=== PATIENT | male | born 1965 | race Caucasian/White ===

== ENCOUNTER → 2017-09-10 | Outpatient (CLI) | payer BC ==
--- NOTE | 2017-09-10 14:26 | CT ---
EXAMINATION TYPE: CT soft tissue neck w con DATE OF EXAM: 09/10/2017 1:34 PM COMPARISON: NONE HISTORY: Hoarseness post OP Ankle surgery CT DLP: 560.4 mGycm Automated exposure control for dose reduction was used. CONTRAST: CT scan of the neck is performed following with IV Contrast, patient injected with 96 mL of Isovue 30 0. Axial images are obtained, coronal and sagittal reformatted images are reviewed. FINDINGS: Airway: Airway is patent. Lung apices are unremarkable. At the level of the arytenoid cartilages ther e is a mild asymmetric appearance to the airway axial image 53 possibly due to patient positioning. Parotid/submandibular glands: No gross abnormality seen. Carotid/Vascular Structures: Four super aortic branch vessels are present. Osseous Structures: Mild degenerative disc disease visualized in the spine Other: Thyroid shows normal density and there is no evident adenopathy IMPRESSION: Mild asymmetry at the level of the arytenoid cartilages as described may be positional, consider direct visualization, follow-up as indicated
== END | disposition home or self-care (01) ==
LOC: RADCTMAIN 13:10
PROVIDERS: ATTEND Otolaryngology
DX: M94.8X8 Other specified disorders of cartilage, other site (principal); J38.00 Paralysis of vocal cords and larynx, unspecified
CPT/HCPCS: 70491; Q9967

== ENCOUNTER → 2017-09-26 | Day surgery (SDC) | payer BC ==
[2017-09-20 14:13] VITALS: BMI 25.0
[~2017-09-26] MED LIST: DEXAMETHASONE SOD PHOSPHATE 10 MG/ML 1 ML VIAL IV ONE; DEXAMETHASONE SOD PHOSPHATE 4 MG/ML 1 ML VIAL IV ONE; FAMOTIDINE 20 MG/2 ML VIAL IV ONE; LACTATED RINGERS 1,000 ML IV SCH; LIDOCAINE 1% 20 ML VIAL (10MG/ML) FOR IV START IV ONE; LIDOCAINE 1% INJ 10MG/ML (20 ML MDV) ONE; MIDAZOLAM 2 MG/2 ML VIAL ONE; MORPHINE SULFATE 4 MG/ML SYRINGE IV PRN; ONDANSETRON 4 MG/2 ML VIAL IVP ONE; ONDANSETRON ODT 4 MG TAB PO ONE; PROPOFOL 10 MG/ML 20 ML VIAL IV ONE; SUCCINYLCHOLINE CHLORIDE 100 MG/5 ML SYR IV ONE; fentaNYL (PF) 50 MCG/ML 2 ML AMP ONE
--- NOTE | 2017-09-26 09:26 | P.OP ---
Date of Procedure: 09/26/17 Preoperative Diagnosis: Right vocal cord lesion Postoperative Diagnosis: Same Procedure(s) Performed: Microlaryngoscopy with excision right vocal cord lesion Anesthesia: SAIMAA Surgeon: Delmar Tucker Estimated Blood Loss (ml): 1 Pathology: other (Right vocal cord lesion) Condition: stable Disposition: PACU Indications for Procedure: This is a 52-year-old white male whose had difficulties with hoarseness. 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 This was actually on the inferior surface. There was also some mild diffuse edema of the right true vocal cord Description of Procedure: The patient was brought in the operative suite and placed in a supine position. The patient underwent induction of general anesthesia with oral endotracheal intubation without difficulty this was a #5 endotracheal tube. The patient was prepped and draped in usual aseptic fashion. A tooth guard was then placed. Laryngoscopy was performed systematic evaluation of the base of tongue vallecula both piriform sinuses post cricoid area and endolarynx. With the larynx in good visualization the laryngoscope was placed in suspension and the Ze[employer] microscope was brought into position for further evaluation of the vocal cords. There was a small lesion on the inferior aspect right true vocal cord which was smooth and rounded. This was excised with microcup dissection technique and sent for permanent section. Hemostasis was gained spontaneously. Once this was completed the laryngoscope and tooth guard were removed. The patient was allowed to emerge from general anesthesia having tolerated procedure well was excised in the operating suite and transferred to postop recovery area in satisfactory condition.
[2017-09-26 09:42] VITALS: TEMP 97
[2017-09-26 09:47] VITALS: RESP 16
[2017-09-26 11:09] VITALS: BP 110/76; PULSE 64
== END | disposition home or self-care (01) ==
LOC: OR 06:47
PROVIDERS: ATTEND Otolaryngology
DX: J38.3 Other diseases of vocal cords (principal); J38.1 Polyp of vocal cord and larynx; J38.01 Paralysis of vocal cords and larynx, unilateral; Z79.52 Long term (current) use of systemic steroids; Z79.891 Long term (current) use of opiate analgesic; Z79.1 Long term (current) use of non-steroidal anti-inflammatories (NSAID); Z79.899 Other long term (current) drug therapy
CPT/HCPCS: 88305; 31541; J2250; J1100; J2405; J2001; J3010; J0330; J2704